=== PATIENT | male | born 1990 | race Caucasian/White ===

== ENCOUNTER 2018-09-21 11:17 | Day surgery (SDC) | payer OTHER, SELFPAY ==
[2018-09-11 12:31] VITALS: BMI 29.9
[2018-09-21] VITALS (10 sets, daily range): BP systolic 88–117; BP diastolic 50–75; PULSE 66–100; RESP 10–28; TEMP 36.1–36.7; O2SAT 92–97; BMI 29.9
[2018-09-21] MEDS: LACTATED RINGERS 1,000 ML 42 ML IV (12:55)
--- NOTE | 2018-09-21 13:38 | PM.PREOP ---
Pre-operative Note Interval Note History & Physical reviewed/Exam performed by Physician: Yes Changes to H&P: No
--- NOTE | 2018-09-21 13:53 | SUR.OPER ---
Prone on spine table, head in foam head support, padded chest and pelvic supports, gel pad at knees, lower legs supported by pillows; nipples, genitalia and toes free of pressure, arms secured on foam padded arm boards at <90 degrees abduction. Tape over blanket at thigh secured to table.
[2018-09-21] MEDS: CEFAZOLIN 2 GM/100 ML FROZ.PIGGY IV (14:21)
[2018-09-21] MEDS: BUPIVACAINE 0.25% W/ EPI 50 ML VIAL 30 ML INJ (14:46)
[2018-09-21] MEDS: methylPREDNISolone acet DEPO 40 MG/ML VIAL INJ (14:47)
--- NOTE | 2018-09-21 15:16 | DI.RAD.S_ITS ---
PROCEDURE: XR LUMBAR SPINE 2-3V INDICATIONS: L5-S1 MICRODISCECTOMY TECHNIQUE: 2 views of the lumbar spine were acquired. COMPARISON: [facility], MR, MR LUMBAR SPINE WITHOUT CONTRAST, 09/23/2017, 14:44. [facility], CR, XR LUMBAR SPINE 2 OR 3 VIEWS, 09/18/2017, 14:35. [facility], , XR LUMBAR SPINE 2 OR 3 VIEWS, 07/21/2018, 15:09. FINDINGS: 2 intraoperative fluoroscopy images demonstrate a surgical port at the level of L5-S1. IMPRESSION: Surgical port at level of L5-S1. Dictated by: Grover Muhammad M.D. on 09/21/2018 at 17:19 Approved by: Grover Muhammad M.D. on 09/21/2018 at 17:20
--- NOTE | 2018-09-21 15:18 | PM.OP.1 ---
Operative Date/Time/Diagnoses Date of procedure: 09/21/18 Time of procedure: 14:18 Pre-op diagnosis: 1. L5-S1 disc herniation 2. L5-S1 spinal stenosis Post-op diagnosis: same Procedure & Clinicians Procedure: 1. L5-S1 hemilaminectomy with microdiscectomy 2. Utiliztaion of microsurgical technique and operating microscope Same procedure as scheduled: Yes Indications: Patient has been having chronic back pain and worsening lumbar radiculopathy. Patient failed multiple conservative management with worsening pain weakness and numbness in her lower extremity. Patient has been having difficulty performing activity of daily living. After discussing risks benefits of treatment options, patient elected proceed with surgery. Surgeon: Zarina Melo [employer] Technician: Tomeka Gonzalez'Brien Click Yes if Unassisted: No Anesthesia Type: General Operative Notes Closure Type: primary Specimen(s): none sent Estimated Blood Loss (mL): 10 Blood products transfused: none Procedure in detail: Patient was seen in the preoperative area. Risks and benefits of the surgery was discussed with the patient. Informed consent was obtained from the patient and placed in the chart. Surgical site was marked. Patient was taken to the operative room. General anesthesia was administered. Prophylactic antibiotic was given to the patient less than 30 min before the incision was made. Patient was placed into a prone position on the Rex table. Patient's back was then prepped and draped in the sterile fashion. Time-out was performed at this time. Using AP and lateral C-arm imaging the interval between L5-S1 was identified and marked on patient's back. A 1 inch incision 1 in from midline was made on the left side. The fascia was incised in line with skin incision. Globus MARS retractors was placed inside the incision and docked onto the L5 lamina. Using microsurgical technique and operating microscope, a L5 laminotomy was performed using a Kerrison rongeur. Liagamentum flavum was resected at the site of the laminotomy. patient was found have significant amount of epidural lipomatosis, which was contributing to patient's spinal stenosis. Epidural lipoma was resected using a pituitary to decompress the epidural space. The disc space at L5-S1 was identified. Microdiscectomy was performed by incising the annulus with #11 blade. Microcurettes and pituitary was used to removed herniated disc fragments of disc from the epidural space. After the microdiskectomy was completed, the area medial lateral superior and inferior to the area of the microdiskectomy was inspected and explored using a micro curette. No other impinging structure was identified. The wound was then irrigated with sterile normal saline. 40 mg Depo-Medrol was placed into the epidural space. The deep fascia was closed with 1-0 Vicryl. The subcutaneous tissue was closed with 2-0 Vicryl. The skin was closed with 4-0 Monocryl. Patient tolerated the procedure well. There were no complications. Patient was transferred recovery room in stable condition. Complications: none Condition: stable Disposition: PACU Plan for aftercare: Discharge home
[2018-09-21] MEDS: fentaNYL 100 MCG/2 ML INJ 50 MCG IV (15:46)
[2018-09-21] MEDS: MEPERIDINE 50 MG/ML 25 MG IV (15:52)
[2018-09-21] MEDS: OXYCODONE/ACETAMINOPHEN 5/325 TABLET 1 TAB PO (16:19)
--- NOTE | 2018-09-21 16:27 | SUR.PHASEII ---
Call light within reach. Po intake provided. Mom picking up rxs.
--- NOTE | 2018-09-21 17:16 | SUR.PHASEII ---
Clarified d/c drsg order with Dr. Melo. Pt to remove drsg in 4-5 days and keep incision dry for 10 days.
== END 2018-09-21 17:09 | disposition home or self-care (01) ==
PROVIDERS: Visit Provider Orthopaedic Surgery Orthopaedic Surgery of the Spine
PROC: (CPT 63030; principal; 2018-09-21 14:15)
DX: M51.16 Intervertebral disc disorders with radiculopathy, lumbar region (principal); I45.10 Unspecified right bundle-branch block; F17.210 Nicotine dependence, cigarettes, uncomplicated; R32 Unspecified urinary incontinence; M48.07 Spinal stenosis, lumbosacral region
CPT/HCPCS: 63030; 72100; 76000; J0690; J1030; J2175; J2250; J2405; J2704; J3010